=== PATIENT | male | born 1955 | race Caucasian/White ===

== ENCOUNTER 2019-01-31 08:39 | Day surgery (SDC) | payer BC ==
[~2019-01-31] VITALS: Ht 177.8 cm; Wt 86.9 kg
[2019-01-31] VITALS (22 sets, daily range): BP systolic 108–152; BP diastolic 72–92; PULSE 58–80; RESP 14–18; Ht 177.8 cm; Wt 86.9 kg
[~2019-01-31 08:39] MED LIST: AMLO5TAB4 PO; ASPI81TA52 PO; ATOR20TA38 PO; METO-429 PO
[2019-01-31] MEDS ORDERED: CEFAZOLIN 2 GM/50 ML (PMX) 50 ML IVPB SCH (09:00)
[2019-01-31] MEDS ORDERED: SOD CHLORIDE 0.9% 1,000 ML IV ONE (10:00)
[2019-01-31] MEDS ORDERED: BUPIVACAINE 0.5% (SDV) 30 ML INJ ONE (12:01)
[2019-01-31] MEDS ORDERED: BUPIVACAINE 0.25% (MPF) 30 ML INJ ONE (12:01)
[2019-01-31] MEDS ORDERED: LIDOCAINE 2% (MDV) 20 ML INJ ONE (12:01)
[2019-01-31] MEDS ORDERED: CEFAZOLIN 1 GM INJ ONE (12:17)
[2019-01-31] MEDS ORDERED: EPHEDrine 25 MG/5 ML SYG ONE (12:17)
[2019-01-31] MEDS ORDERED: MIDAZOLAM 1 MG/ML 2 ML INJ ONE (12:18)
[2019-01-31] MEDS ORDERED: EPHEDrine 25 MG/5 ML SYG IV PRN (12:30)
[2019-01-31] MEDS ORDERED: ALBUTEROL 0.083% (NEB) 2.5 MG/3 ML AMP HHN PRN (12:30)
[2019-01-31] MEDS ORDERED: DIPHENHYDRAMINE 50 MG INJ IV PRN (12:30)
[2019-01-31] MEDS ORDERED: LABETALOL HCL 20MG INJ IV PRN (12:30)
[2019-01-31] MEDS ORDERED: FENTAnyl 50 MCG/ML VIAL IV PRN ×3 (12:30)
[2019-01-31] MEDS ORDERED: ONDANSETRON 4 MG INJ IV PRN (12:30)
[2019-01-31] MEDS ORDERED: MEPERIDINE 25 MG INJ IV PRN (12:30)
[2019-01-31] MEDS ORDERED: hydrALAzine 20 MG INJ IV PRN (12:30)
[2019-01-31] MEDS ORDERED: OXYCODONE/ACETAMINOPHEN (5/325) TAB PO PRN ×2 (12:30)
[2019-01-31] MEDS ORDERED: IPRATROPIUM (NEB) 0.5 MG/2.5 ML AMP HHN PRN (12:30)
[2019-01-31] MEDS ORDERED: HYDROmorphONE 1 MG/5 ML IV SYRINGE IV PRN ×3 (12:30)
[2019-01-31] MEDS ORDERED: PROPOFOL 40 ML ONE (12:47)
[2019-01-31] MEDS ORDERED: LIDOCAINE 100 MG SYRINGE ONE (12:47)
[2019-01-31] MEDS ORDERED: SUCCINYLCHOLINE CHLORIDE 100 MG/5 ML SYG IV ONE (12:48)
[2019-01-31] MEDS ORDERED: ROCURONIUM 50 MG INJ ONE (12:48)
[2019-01-31] MEDS ORDERED: ONDANSETRON 4 MG INJ ONE (12:48)
[2019-01-31] MEDS ORDERED: PHENYLephrine (100 MCG/ML) 10ML SYG ONE (12:53)
[2019-01-31] MEDS ORDERED: HYDROCODONE/APAP (5/325) TAB PO ONE (13:30)
== END 2019-01-31 15:20 | disposition home or self-care (01) ==
LOC: SDS 08:39
PROVIDERS: ATTEND Surgery
DX: R22.1 Localized swelling, mass and lump, neck (principal); I10 Essential (primary) hypertension; E78.5 Hyperlipidemia, unspecified; I48.91 Unspecified atrial fibrillation; E78.00 Pure hypercholesterolemia, unspecified
CPT/HCPCS: 14041; 71045; 80053; 85025; 93005; J2001; J2250; J2370; J2405; J3010; Z7610; 88307; 88341; 88342; J0690